=== PATIENT | male | born 1970 | race Caucasian/White ===

== ENCOUNTER 2020-04-04 11:17 | Emergency (ER) | payer OTHER ==
[~2020-04-04 11:17] MED LIST: ONDANSETRON ODT4 MG SL
== END 2020-04-04 14:25 | disposition home or self-care (01) ==
LOC: FER 11:17
DX: S13.4XXA Sprain of ligaments of cervical spine, initial encounter (principal); S00.03XA Contusion of scalp, initial encounter; V40.5XXA Car driver injured in collision with pedestrian or animal in traffic accident, initial encounter; Y92.410 Unspecified street and highway as the place of occurrence of the external cause
CPT/HCPCS: 70450; 72125

== ENCOUNTER 2020-12-20 04:10 | Emergency (ER) | payer OTHER ==
[2020-12-20 05:13] LABS: ALBUMIN 4.2 g/dL (3.4-5.0); BILIRUBIN - TOTAL 0.8 mg/dL (0.2-1.0); CREATININE 0.98 mg/dL (0.67-1.17); GLOBULIN (CALCULATION) 3.5 g/dL; POTASSIUM 3.9 mmol/L (3.5-5.1); TOTAL PROTEIN 7.7 g/dL (6.4-8.2)
[2020-12-20 05:14] LABS: BASOPHIL 0.5 % (0-2); EOSINOPHIL 3.6 % (0-5); HCT 48.4 % (42.0-52.0); HGB 16.9 g/dl (13.2-18.0); LYMPHOCYTE 8.6 % (15-48); MCH 28.8 pg (25.0-31.0); MCHC 34.9 g/dL (32.0-36.0); MCV 82.5 fL (78.0-100.0); MONOCYTE 7.3 % (0-12); MPV 10.7 fL (6.0-9.5); NEUTROPHIL 79.6 % (41-80); NRBC 0; PLT 194 K/uL (150-400); RBC 5.87 M/uL (4.70-6.00); RDW 13.1 % (11.5-14.0); WBC 11.2 K/uL (4.0-10.5)
[2020-12-20] MEDS ORDERED: PRILOSEC20 MG PO (06:13)
[2020-12-20] MEDS ORDERED: ZESTRIL5 MG PO (06:15)
== END 2020-12-20 07:40 | disposition home or self-care (01) ==
LOC: FER 04:10
PROVIDERS: Emergency Medicine
DX: R07.89 Other chest pain (principal); I10 Essential (primary) hypertension; Z88.1 Allergy status to other antibiotic agents
CPT/HCPCS: 36415; 71045; 80053; 84484; 85025; 93005